=== PATIENT | male | born 1955 | race Caucasian/White ===

== ENCOUNTER 2016-08-16 16:19 | Emergency (ER) | payer BC ==
[~2016-08-16] VITALS: Ht 188 cm; Wt 86.4 kg
[2016-08-16 16:24] VITALS: Ht 188 cm; Wt 86.4 kg
[2016-08-16] MEDS ORDERED: SODIUM CHLORIDE 0.9% 1000ML 500 ML IV STA (17:03)
[2016-08-16] MEDS ORDERED: SODIUM CHLORIDE 0.9% 1000ML 1,000 ML IV STA (17:03)
[2016-08-16] MEDS ORDERED: ACETAMINOPHEN 500 MG TAB PO STA (17:03)
[2016-08-16 17:41] LABS: BASO % 1.2 %; BASO ABS # 0.08 K/uL (0-0.2); COMPLETE YES; EOS % 2.3 %; HEMATOCRIT 43.4 % (42-52); IG% 0.2 %; LYMPH % 11.2 %; LYMPH ABS # 0.72 K/uL (1.2-3.4); MEAN CELL VOLUME 85.8 fL (80-100); MEAN CORPUSCULAR HEMOGLOBIN 29.2 pg (25-34); MEAN CORPUSCULAR HGB CONC 34.1 g/dl (32-36); MEAN PLATELET VOLUME 10.8 fL (7.4-10.4); MONO % 12.9 %; NEUT % 72.2 %; PLATELET COUNT 191 K/uL (130-400); RED BLOOD COUNT 5.06 M/uL (4.7-6.1); WHITE BLOOD COUNT 6.43 K/uL (4.8-10.8)
--- NOTE | 2016-08-16 17:59 | EMERGENCY ROOM VISIT NOTE ---
History Report prepared by Madonna: Stefany Cisneros Under the Supervision of: Dr. Brody Jean M.D. First contact with patient: 16:56 Chief Complaint: FEVER Stated Complaint: FEVER, HEADACHE History of Present Illness The patient is a 60 year old male who presents to the Emergency Room with complaints of worsening headache beginning 2 days prior to arrival. He rates his pain as 6/10 in severity. The patient states that he is also experiencing a fever, dizziness and muscle aches. The patient was in the [facility] in May and was exposed to Malaria from mosquito bites. He denies symptoms leading up until now. The patient notes he was around his family that had cold like symptoms but states his symptoms are different. He notes he has a normal appetite. He denies respiratory troubles, GI symptoms, sore throat, urinary symptoms, or rash. The patient notes he recently finished Prednisone for ongoing ear troubles he has been experiencing. The patient did get his influenza vaccine this year. Source of History: patient Onset: 2 days [employer] Position: other (global) Symptom Intensity: 6/10 Quality: other (headache) Timing: worsening Associated Symptoms: + fevers, No urinary symptoms Note: Patient is experiencing dizziness and muscle aches. Review of Systems See HPI for pertinent positives & negatives. A total of 10 systems reviewed and were otherwise negative. Past Medical & Surgical Medical Problems: (1) No Known Active Medical Problems Family History Cancer Social History Smoking Status: Never Smoker Alcohol Use: occasionally Marital Status: Housing Status: lives with family Occupation Status: employed Current/Historical Medications Scheduled Doxycycline Hyclate (Vibramycin), 100 MG PO BID Ranitidine (Zantac), 1 TAB PO BID Scheduled PRN Naproxen (Aleve), 220 MG PO UD PRN for Pain Allergies Coded Allergies: No Known Allergies (Unverified , 12/13/15) Physical Exam Vital Signs Date Time Temp Pulse Resp B/P Pulse Ox O2 Delivery O2 Flow Rate FiO2 08/16/16 18:00 86 18 134/69 93 Room Air 08/16/16 17:27 87 08/16/16 16:24 38.2 110 20 144/75 93 Room Air Physical Exam GENERAL: Patient is in no acute distress. HEENT: No acute trauma, normocephalic atraumatic, mucous membranes moist, no nasal congestion, no scleral icterus, no throat erythema or exudate. Right TM has tube in place, left TM normal. NECK: No stridor, no adenopathy, no meningismus, trachea is midline. LUNGS: Clear to auscultation bilaterally, no wheeze, no rhonchi, breath sounds equal. HEART: Without murmurs gallops or rubs, regular rate and rhythm. ABDOMEN: Soft, nontender, bowel sounds positive, no hernias, no peritonitis. EXTREMITIES: No cyanosis or edema, full range of motion of all the joints without pain or difficulty, no signs for acute trauma. NEUROLOGIC: Oriented x 3, no acute motor or sensory deficits, no focal weakness. SKIN: No rash, no jaundice, no diaphoresis. Medical Decision & Procedures ER Provider Diagnostic Interpretation: X-ray results as stated below per interpretation by me and the radiologist: Chest One View Portable Clinical History: Fever, Sepsis Comparison Study: No previous studies for comparison. Findings: Patient is rotated. There is no pneumothorax or pleural effusion. There is no evidence of pulmonary edema. Cardiomediastinal silhouette is normal. Mild left basilar opacity favors atelectasis. Impression: 1. No acute findings. 2. Mild left basilar opacity with favors atelectasis. Laboratory Results 08/16/16 17:20 Red Blood Count 5.06, Mean Corpuscular Volume 85.8, Mean Corpuscular Hemoglobin 29.2, Mean Corpuscular Hemoglobin Concent 34.1, Mean Platelet Volume 10.8, Neutrophils (%) (Auto) 72.2, Lymphocytes (%) (Auto) 11.2, Monocytes (%) (Auto) 12.9, Eosinophils (%) (Auto) 2.3, Basophils (%) (Auto) 1.2, Neutrophils # (Auto ) 4.64, Lymphocytes # (Auto) 0.72, Monocytes # (Auto) 0.83, Eosinophils # (Auto ) 0.15, Basophils # (Auto) 0.08 08/16/16 17:20 Test 08/16/16 17:20 08/16/16 17:32 08/16/16 18:01 White Blood Count 6.43 K/uL (4.8-10.8) Red Blood Count 5.06 M/uL (4.7-6.1) Hemoglobin 14.8 g/dL (14.0-18.0) Hematocrit 43.4 % (42-52) Mean Corpuscular Volume 85.8 fL (80-100) Mean Corpuscular Hemoglobin 29.2 pg (25-34) Mean Corpuscular Hemoglobin Concent 34.1 g/dl (32-36) Platelet Count 191 K/uL (130-400) Mean Platelet Volume 10.8 fL (7.4-10.4) Neutrophils (%) (Auto) 72.2 % Lymphocytes (%) (Auto) 11.2 % Monocytes (%) (Auto) 12.9 % Eosinophils (%) (Auto) 2.3 % Basophils (%) (Auto) 1.2 % Neutrophils # (Auto) 4.64 K/uL (1.4-6.5) Lymphocytes # (Auto) 0.72 K/uL (1.2-3.4) Monocytes # (Auto) 0.83 K/uL (0.11-0.59) Eosinophils # (Auto) 0.15 K/uL (0-0.5) Basophils # (Auto) 0.08 K/uL (0-0.2) RDW Standard Deviation 41.5 fL (36.4-46.3) RDW Coefficient of Variation 13.2 % (11.5-14.5) Immature Granulocyte % (Auto) 0.2 % Immature Granulocyte # (Auto) 0.01 K/uL (0.00-0.02) Anion Gap 7.0 mmol/L (3-11) Est Creatinine Clear Calc Drug Dose 112.8 ml/min Estimated GFR () 112.2 Estimated GFR (Non- 96.8 BUN/Creatinine Ratio 17.9 (10-20) Calcium Level 8.8 mg/dl (8.5-10.1) Total Bilirubin 0.4 mg/dl (0.2-1) Aspartate Amino Transf (AST/SGOT) 18 U/L (15-37) Alanine Aminotransferase (ALT/SGPT) 21 U/L (12-78) Alkaline Phosphatase 67 U/L (45-117) Total Protein 7.5 gm/dl (6.4-8.2) Albumin 4.0 gm/dl (3.4-5.0) Globulin 3.5 gm/dl (2.5-4.0) Albumin/Globulin Ratio 1.1 (0.9-2) Influenza Type A Antigen Neg for Influ A (NEG) Influenza Type B Antigen Neg for Influ B (NEG) Urine Color YELLOW Urine Appearance CLEAR (CLEAR) Urine pH 8.0 (4.5-7.5) Urine Specific [place] 1.022 (1.000-1.030) Urine Protein NEG (NEG) Urine Glucose (UA) NEG (NEG) Urine Ketones TRACE (NEG) Urine Occult Blood NEG (NEG) Urine Nitrite NEG (NEG) Urine Bilirubin NEG (NEG) Urine Urobilinogen NEG (NEG) Urine Leukocyte Esterase NEG (NEG) Laboratory results reviewed by me. Medications Administered Medications (Trade) Dose Ordered Sig/Gali Route Start Time Stop Time Status Last Admin Dose Admin Sodium Chloride 500 ml @ 999 mls/hr Q31M STAT IV 08/16/16 17:03 08/16/16 17:33 DC 08/16/16 17:03 999 MLS/HR Sodium Chloride (Nss 1000ml) 1,000 ml @ 200 mls/hr Q5H STAT IV 08/16/16 17:03 08/16/16 22:02 08/16/16 17:03 200 MLS/HR Acetaminophen (Tylenol Tab) 1,000 mg NOW STAT PO 08/16/16 17:03 08/16/16 17:09 DC 08/16/16 18:07 1,000 MG ED Course 1657: The patient was evaluated in room C7. A complete history and physical exam was performed. 1703: Tylenol Tab 1,000 mg PO, Sodium Chloride 1,000 ml @ 200 mls/hr IV, Sodium Chloride 500 ml @ 999 mls/hr IV. 1846: I reevaluated the patient. 1900: Vibramycin Cap 100 mg PO. 1901: Reevaluated the patient. Discussed results and discharge instructions: He verbalized understanding and agreement. The patient is ready for discharge. Medical Decision The patient is a 60 year old male who presents to the ED with complaints of worsening headache. Differential diagnoses considered include malaria, influenza or flu like illness, pneumonia, UTI, meningitis, pharyngitis, otitis media. There is no leukocytosis or concerning anemia. No significant electrolyte abnormality, kidney failure or hepatitis. Urinalysis does not show infection. There is no cellulitis on exam. The patient does not demonstrate findings of meningitis, no pharyngitis or otitis media. Blood cultures are pending. Parasite smear for malaria is pending. A chest film was done, there does appear to be a left base infiltrate or atelectasis, certainly, pneumonia would explain his fever, aches and complaints. The patient is stable for discharge, he will be started on doxycycline twice a day for 10 days, Motrin and/or Tylenol for fever, rest and hydration were encouraged. He was given IV saline and oral Tylenol during his ER stay. The patient will return here for any worsening or progressing symptoms, he can call for his parasite test results tomorrow. Impression Primary Impression: Pneumonia Additional Impression: Fever Scribe Attestation The scribe's documentation has been prepared under my direction and personally reviewed by me in its entirety. I confirm that the note above accurately reflects all work, treatment, procedures, and medical decision making performed by me. Departure Information Dispostion Home / Self-Care Prescriptions Doxycycline Hyclate (VIBRAMYCIN) 100 Mg Cap 100 MG PO BID for 10 Days, #20 CAP Prov: Brody Jean M.D. 08/16/16 Referrals Jostin Corral, D.OBranden (PCP) Forms HOME CARE DOCUMENTATION FORM, IMPORTANT VISIT INFORMATION, Work Instructions Patient Instructions My [facility] Additional Instructions rest fluids tylenol or motrin/naproxen for fever and aches doxycycline 2x per dya for 10 days return for worsening symptoms as discussed follow with margarita griffin for a recheck call here tomorrow for results of the parasite test---[phone] Problem Qualifiers
[2016-08-16 18:00] LABS: BUN/CREATININE RATIO 17.9 (10-20); CALCIUM 8.8 mg/dl (8.5-10.1); CREATININE 0.82 mg/dl (0.60-1.40); POTASSIUM 3.9 mmol/L (3.5-5.1)
[2016-08-16 18:04] LABS: ALB/GLOB RATIO 1.1 (0.9-2)
[2016-08-16] MEDS ORDERED: ZNTT/150 PO (18:10)
[2016-08-16] MEDS ORDERED: NAPR1TAB9 PO (18:10)
[2016-08-16 18:24] LABS: URINE APPEARANCE CLEAR (CLEAR); URINE BILIRUBIN NEG (NEG); URINE COLOR YELLOW; URINE NITRITE NEG (NEG); URINE SPECIFIC GRAVITY 1.022 (1.000-1.030); UROBILINOGEN NEG (NEG); ZZUR CULT IF INDIC CLEAN CATCH NO
[2016-08-16 18:29] LABS: MANUAL MICROSCOPIC REQUIRED? NO; REVIEW REQ? NO
[2016-08-16] MEDS ORDERED: DOXY100C PO (18:54)
[2016-08-16] MEDS ORDERED: DOXYCYCLINE HYCLATE 100 MG CAP PO ONE (19:00)
[2016-08-16 19:07] VITALS: BP 133/69; PULSE 90; TEMP 37.5; O2SAT 92
--- NOTE | 2016-08-16 23:27 | DIAGNOSTIC IMAGING REPORT ---
CHEST ONE VIEW PORTABLE CLINICAL HISTORY: Fever. Sepsis. COMPARISON STUDY: No previous studies for comparison. FINDINGS: Patient is rotated. There is no pneumothorax or pleural effusion. There is no evidence of pulmonary edema. Cardiomediastinal silhouette is normal. Mild left basilar opacity favors atelectasis. IMPRESSION: 1. No acute findings. 2. Mild left basilar opacity which favors atelectasis. Electronically signed by: Russell Aguilar M.D. 08/16/2016 11:26 PM Dictated Date/Time: 08/16/2016 5:44 PM
== END 2016-08-16 19:08 | disposition home or self-care (01) ==
LOC: C.EDB 16:21 → C.EDC 19:08
DX: J18.9 Pneumonia, unspecified organism (principal); Z79.899 Other long term (current) drug therapy; Z80.9 Family history of malignant neoplasm, unspecified

== ENCOUNTER → 2017-05-21 | Outpatient (CLI) | payer BC, OTHER ==
[~2017-05-21] MED LIST: NAPR1TAB9 PO; RANI150T85 PO
== END | disposition home or self-care (01) ==
LOC: C.RDSM 08:50
PROVIDERS: ATTEND Physical Medicine & Rehabilitation Sports Medicine
DX: M25.511 Pain in right shoulder (principal)

== ENCOUNTER → 2017-06-11 | Outpatient (CLI) | payer OTHER ==
[~2017-06-11] MED LIST changes: +GADAVIST IV PRN; -RANI150T85 PO; +ZNTT/150 PO
--- NOTE | 2017-06-11 16:14 | DIAGNOSTIC IMAGING REPORT ---
MRI OF THE RIGHT SHOULDER WITH AND WITHOUT CONTRAST CLINICAL HISTORY: Right shoulder pain. Lucency in acromium on AP view on radiographs. COMPARISON STUDY: Right shoulder radiographs May 21, 2017. TECHNIQUE: Utilizing a 1.5 Michelle magnet, multiplanar, multiecho imaging of the right shoulder was performed pre and postcontrast ministration. Injection of 8.5 cc of Gadavist IV was uneventful. FINDINGS: Alignment of the right shoulder is anatomic. There is joint space narrowing with capsular hypertrophy with associated edema and enhancement of the right acromioclavicular joint. This accounts for irregularity of the distal right clavicle and the adjacent acromium on radiographs. No lesion is identified within the right acromium. Therefore, the possible lesion shown on exam of May 21, 2017 was artifactual. There is no suspicious osseous lesion on this exam. There is no joint effusion. There is no suspicious marrow replacement. The proximal long head of the biceps tendon is intact. There is a partial thickness articular surface tear of distal infraspinatus. There is tendinopathy of distal supraspinatus with no full-thickness cuff tear. There is no tendon retraction or significant muscular atrophy. There is minimal muscular atrophy of supraspinatus. Teres minor and subscapularis are intact. The glenoid labrum is suboptimally assessed on this nonarthrogram exam, particularly given motion artifact. The posterior superior glenoid labrum is truncated. This may reflect a labral tear. IMPRESSION: 1. No osseous lesion. The lucency within the acromium on radiographs of May 21, 2017 was artifactual. 2. 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 3. Partial thickness articular surface tear of distal infraspinatus. Tendinopathy of supraspinatus. No full-thickness cuff tear. Minimal muscular atrophy of supraspinatus. 4. Truncated posterior superior labrum which may reflect a labral tear. Labrum suboptimally assessed on this nonarthrogram exam with motion artifact. Electronically signed by: Russell Aguilar M.D. 06/11/2017 4:13 PM Dictated Date/Time: 06/11/2017 3:53 PM
== END | disposition home or self-care (01) ==
LOC: C.MRI 14:35
PROVIDERS: ATTEND Physical Medicine & Rehabilitation Sports Medicine
DX: M25.511 Pain in right shoulder (principal); M19.011 Primary osteoarthritis, right shoulder; S46.011A Strain of muscle(s) and tendon(s) of the rotator cuff of right shoulder, initial encounter; M75.81 Other shoulder lesions, right shoulder; R93.7 Abnormal findings on diagnostic imaging of other parts of musculoskeletal system; X58.XXXA Exposure to other specified factors, initial encounter